=== PATIENT | female | born 1935 | race Caucasian/White ===

== ENCOUNTER 2016-10-14 12:51 | Emergency (ER) | payer MEDICARE, OTHER ==
--- NOTE | 2016-10-14 13:28 | EDM.PDOC ---
[facility] Behavioral Health - General Chief Complaint: Behavioral/Psych Stated Complaint: DEPRESSION Time Seen by Provider: 10/14/16 13:00 Source of Information: Reports: Patient Exam Limitations: Reports: No limitations - History of Present Illness INITIAL COMMENTS - FREE TEXT/NARRATIVE: History of present illness: [81-year-old female presenting with complaints of severe depression and history of ECT treatment. Patient was on vacation when she felt her depression coming upon her yet again and was unable to find someone to perform her ECT as is her usual routine when she has these feelings. Patient has an almost 20 year history of debilitating Major depressive disorder that has been refractory to any of the current psych medication and has only found relief with ECT. Patient and her have been in dialogue with psychiatric physician in [place] who indicated that he would perform her ECT as long as she was considered stable by the medical provider. Patient comes in today seeking basic Psych workup to take documentation to [place] per private vehicle for ECT treatment.] Review of systems: As per history of present illness and below otherwise all systems reviewed and negative. Past medical history: As per history of present illness and as reviewed below otherwise noncontributory. Surgical history: As per history of present illness and as reviewed below otherwise noncontributory. Social history: No reported history of drug or alcohol abuse. Family history: As per history of present illness and as reviewed below otherwise noncontributory. Physical exam: HEENT: Atraumatic, normocephalic, pupils reactive, negative for conjunctival pallor or scleral icterus, mucous membranes moist, throat clear, neck supple, nontender, trachea midline. Lungs: Clear to auscultation, breath sounds equal bilaterally, chest nontender. Heart: S1S2, regular, negative for clicks, rubs, or JVD. Abdomen: Soft, nondistended, nontender. Negative for masses or hepatosplenomegaly. Negative for costovertebral tenderness. Pelvis: Stable nontender. Genitourinary: Deferred. Rectal: Deferred. Extremities: Atraumatic, negative for cords or calf pain. Neurovascular unremarkable. Neuro: Awake, alert, oriented. Cranial nerves II through XII unremarkable. Cerebellum unremarkable. Motor and sensory unremarkable throughout. Exam nonfocal. Patient presents as diffuse, tangential with flattened affect. Diagnostics: [Psych workup] Therapeutics: [] Impression: [Major depressive disorder] Plan: [Medically clear for patient to transport him POV to [place] for ECT] Definitive disposition and diagnosis as appropriate pending reevaluation and review of above. - Related Data Allergies Allergy/AdvReac Type Severity Reaction Status Date / Time No Known Allergies Allergy Verified 10/14/16 13:55 Home Medications: Home Meds Aspirin 81 mg PO BRK 10/14/16 [History] Calcium Carbonate/Vitamin D3 [Calcium 500 + Vit D 200 Caplet] 1 each PO TID [History] Cholecalciferol (Vitamin D3) [D-2000] 2,000 unit PO DAILY 10/14/16 [History] Denosumab [Prolia] 60 mg SUBCUT Q180D 10/14/16 [History] Estrogens, Conjugated [Premarin Vaginal Crm] 1 gm VAG DAILY 10/14/16 [History] Multivitamin [Daily Purvi] 1 each PO DAILY 10/14/16 [History] Nitrofurantoin Monohyd/M-Cryst [Macrobid 100 mg Capsule] 100 mg PO BID #20 capsule 10/14/16 [Rx] Rosuvastatin [Crestor] 10 mg PO BEDTIME 10/14/16 [History] Ubiquinol 100 mg PO DAILY 10/14/16 [History] amLODIPine [Norvasc] 5 mg PO DAILY 10/14/16 [History] ED ROS GENERAL - Review of Systems Review Of Systems: See Below (The history of present illness) ED EXAM, BEHAVIORAL HEALTH - Physical Exam Exam: See Below (See history of present illness) COURSE, BEHAVIORAL HEALTH COMP - Course Vital Signs: Last Vital Signs Temp 36.9 C 10/14/16 13:56 Pulse 94 10/14/16 13:56 Resp 16 10/14/16 13:56 BP 117/69 10/14/16 13:56 Pulse Ox 95 10/14/16 13:56 Orders, Labs, Meds: Laboratory Tests 10/14/16 10/14/16 10/14/16 Range/Units 13:24 13:24 13:24 WBC 8.25 (4.0-11.0) K/uL RBC 5.00 (4.30-5.90) M/uL Hgb 14.4 (12.0-16.0) g/dL Hct 41.9 (36.0-46.0) % MCV 83.8 (80.0-98.0) fL MCH 28.8 (27.0-32.0) pg MCHC 34.4 (31.0-37.0) g/dL RDW Std Deviation 40.6 (28.0-62.0) fl RDW Coeff of [place] 14 (11.0-15.0) % Plt Count 188 (150-400) K/uL MPV 10.20 (7.40-12.00) fL Neut % (Auto) 68.0 (48.0-80.0) % Lymph % (Auto) 18.7 (16.0-40.0) % [place] % (Auto) 11.9 (0.0-15.0) % Eos % (Auto) 1.2 (0.0-7.0) % Baso % (Auto) 0.2 (0.0-1.5) % Neut # (Auto) 5.6 (1.4-5.7) K/uL Lymph # (Auto) 1.5 (0.6-2.4) K/uL [place] # (Auto) 1.0 H (0.0-0.8) K/uL Eos # (Auto) 0.1 (0.0-0.7) K/uL Baso # (Auto) 0.0 (0.0-0.1) K/uL Nucleated RBC % 0.0 /100WBC Nucleated RBCs # 0 K/uL Sodium 142 (136-146) mmol/L Potassium 3.6 (3.5-5.1) mmol/L Chloride 109 (98-110) mmol/L Carbon Dioxide 20 L (21-31) mmol/L BUN 14 (6.0-23.0) mg/dL Creatinine 1.2 (0.6-1.5) mg/dL Est Cr Clr Drug Dosing 33.65 mL/min Estimated GFR (MDRD) 43.2 ml/min Glucose 119 H (60-110) mg/dL Calcium 10.1 (8.8-10.8) mg/dL Magnesium 1.7 (1.5-2.3) mEq/L Total Bilirubin 0.5 (0.1-1.5) mg/dL AST 19 (5-40) IU/L ALT 24 (8-54) IU/L Alkaline Phosphatase 79 (40-150) Total Protein 7.8 (6.0-8.0) g/dL Albumin 4.3 (3.4-4.8) g/dL Globulin 3.5 (2.0-3.5) g/dL Albumin/Globulin Ratio 1.2 L (1.3-2.8) TSH 3rd Generation 1.10 (0.47-5.0) uIU/mL Urine Color Urine Appearance Urine pH (5.0-8.0) Ur Specific [place] (1.001-1.035) Urine Protein (NEGATIVE) mg/dL Urine Glucose (UA) (NEGATIVE) mg/dL Urine Ketones (NEGATIVE) mg/dL Urine Occult Blood (NEGATIVE) Urine Nitrite (NEGATIVE) Urine Bilirubin (NEGATIVE) Urine Urobilinogen (<2.0) EU/dL Ur Leukocyte Esterase (NEGATIVE) Urine RBC (0-2/HPF) Urine WBC (0-5/HPF) Ur Epithelial Cells (NONE-FEW) Ur Renal Epithelial Cell Urine Bacteria (NEGATIVE) Salicylates < 5.0 (0-20) mg/dL Urine Opiates Screen (NEGATIVE) Ur Oxycodone Screen (NEGATIVE) Urine Methadone Screen (NEGATIVE) Acetaminophen < 3.0 ug/mL Ur Barbiturates Screen (NEGATIVE) Ur Phencyclidine Scrn (NEGATIVE) Ur Amphetamine Screen (NEGATIVE) U Methamphetamines Scrn (NEGATIVE) U Benzodiazepines Scrn (NEGATIVE) U Cocaine Metab Screen (NEGATIVE) U Marijuana (THC) Screen (NEGATIVE) Ethyl Alcohol < 10.0 mg/dL 10/14/16 10/14/16 Range/Units 14:00 14:00 WBC (4.0-11.0) K/uL RBC (4.30-5.90) M/uL Hgb (12.0-16.0) g/dL Hct (36.0-46.0) % MCV (80.0-98.0) fL MCH (27.0-32.0) pg MCHC (31.0-37.0) g/dL RDW Std Deviation (28.0-62.0) fl RDW Coeff of [place]ha (11.0-15.0) % Plt Count (150-400) K/uL MPV (7.40-12.00) fL Neut % (Auto) (48.0-80.0) % Lymph % (Auto) (16.0-40.0) % [place] % (Auto) (0.0-15.0) % Eos % (Auto) (0.0-7.0) % Baso % (Auto) (0.0-1.5) % Neut # (Auto) (1.4-5.7) K/uL Lymph # (Auto) (0.6-2.4) K/uL [place] # (Auto) (0.0-0.8) K/uL Eos # (Auto) (0.0-0.7) K/uL Baso # (Auto) (0.0-0.1) K/uL Nucleated RBC % /100WBC Nucleated RBCs # K/uL Sodium (136-146) mmol/L Potassium (3.5-5.1) mmol/L Chloride (98-110) mmol/L Carbon Dioxide (21-31) mmol/L BUN (6.0-23.0) mg/dL Creatinine (0.6-1.5) mg/dL Est Cr Clr Drug Dosing mL/min Estimated GFR (MDRD) ml/min Glucose (60-110) mg/dL Calcium (8.8-10.8) mg/dL Magnesium (1.5-2.3) mEq/L Total Bilirubin (0.1-1.5) mg/dL AST (5-40) IU/L ALT (8-54) IU/L Alkaline Phosphatase (40-150) Total Protein (6.0-8.0) g/dL Albumin (3.4-4.8) g/dL Globulin (2.0-3.5) g/dL Albumin/Globulin Ratio (1.3-2.8) TSH 3rd Generation (0.47-5.0) uIU/mL Urine Color YELLOW Urine Appearance HAZY Urine pH 6.0 (5.0-8.0) Ur Specific [place] 1.010 (1.001-1.035) Urine Protein NEGATIVE (NEGATIVE) mg/dL Urine Glucose (UA) NEGATIVE (NEGATIVE) mg/dL Urine Ketones NEGATIVE (NEGATIVE) mg/dL Urine Occult Blood TRACE-INTACT (NEGATIVE) Urine Nitrite NEGATIVE (NEGATIVE) Urine Bilirubin NEGATIVE (NEGATIVE) Urine Urobilinogen 0.2 (<2.0) EU/dL Ur Leukocyte Esterase SMALL (NEGATIVE) Urine RBC 0-4 (0-2/HPF) Urine WBC 0-2 (0-5/HPF) Ur Epithelial Cells OCCASIONAL (NONE-FEW) Ur Renal Epithelial Cell RARE Urine Bacteria FEW (NEGATIVE) Salicylates (0-20) mg/dL Urine Opiates Screen NEGATIVE (NEGATIVE) Ur Oxycodone Screen NEGATIVE (NEGATIVE) Urine Methadone Screen NEGATIVE (NEGATIVE) Acetaminophen ug/mL Ur Barbiturates Screen NEGATIVE (NEGATIVE) Ur Phencyclidine Scrn NEGATIVE (NEGATIVE) Ur Amphetamine Screen NEGATIVE (NEGATIVE) U Methamphetamines Scrn NEGATIVE (NEGATIVE) U Benzodiazepines Scrn POSITIVE (NEGATIVE) U Cocaine Metab Screen NEGATIVE (NEGATIVE) U Marijuana (THC) Screen NEGATIVE (NEGATIVE) Ethyl Alcohol mg/dL Departure - Departure Time of Disposition: 15:06 Disposition: Home, Self-Care 01 Condition: good Clinical Impression: Depressive disorder Prescriptions: Nitrofurantoin Monohyd/M-Cryst [Macrobid 100 mg Capsule] 100 mg PO BID #20 capsule Referrals: Cedric Putnam MD [Primary Care Provider] - Forms: ED Department Discharge Additional Instructions: The following information is given to patients seen in the emergency department who are being discharged to home. This information is to outline your options for follow-up care. We provide all patients seen in our emergency department with a follow-up referral. The need for follow-up, as well as the timing and circumstances, are variable depending upon the specifics of your emergency department visit. If you don't have a primary care physician on staff, we will provide you with a referral. We always advise you to contact your personal physician following an emergency department visit to inform them of the circumstance of the visit and for follow-up with them and/or the need for any referrals to a consulting specialist. The emergency department will also refer you to a specialist when appropriate. This referral assures that you have the opportunity for follow-up care with a specialist. All of these measure are taken in an effort to provide you with optimal care, which includes your follow-up. Under all circumstances we always encourage you to contact your private physician who remains a resource for coordinating your care. When calling for follow-up care, please make the office aware that this follow-up is from your recent emergency room visit. If for any reason you are refused follow-up, please contact the [facility] Emergency Department at and asked to speak to the emergency department charge nurse. You've been provided with the basic psychiatric workup as well as a basic physical exam and determined to be medically stable to drive to [place] for treatment. Return to ED as needed as discussed
[2016-10-14 14:04] LABS: CHLORIDE,CL 109 mmol/L (98-110); SODIUM,NA 142 mmol/L (136-146)
[2016-10-14 14:11] LABS: ACETAMINOPHEN < 3.0 ug/mL
[2016-10-14 16:04] VITALS: BP 130/81
== END 2016-10-14 15:36 | disposition home or self-care (01) ==
LOC: MW.ED 12:51
DX: F32.9 Major depressive disorder, single episode, unspecified (principal); Z79.82 Long term (current) use of aspirin; Z79.899 Other long term (current) drug therapy
CPT/HCPCS: 36415; 80053; 80305; 81001; 83735; 84443; 85025; 99283; G0480

== ENCOUNTER → 2016-10-29 | Outpatient (CLI) | payer MEDICARE, OTHER ==
--- NOTE | 2016-12-03 17:49 | BHI ---
SERVICE DATE: 12/03/2016 PATIENT #: [id number] #: NOT DICTATED IDENTIFICATION: Evelyn is an 81-year-old female, who is here today for initial evaluation. She is referred to me by Dr. Putnam. CURRENT MEDICATIONS: Wellbutrin XL 150 mg a day, and she also takes Crestor off and on. ALLERGIES: She has no known allergies to medications. CHIEF COMPLAINT: She states she is here to evaluate her medications. HISTORY OF PRESENT ILLNESS: Evelyn has a very long history of very significant debilitating depression, it started in 1993 and she has had it periodically. Since then, she has good periods and then she slumps back down into deep depression. Since close to that time, she has had ECT treatments periodically. Last treatment she had was last month, and she has done well with them, but she does noticed a memory problem with it. She was supposed to go back for another one, but she was in [place] with her . She saw doctor down there. He put her on the Wellbutrin, and she feels like the Wellbutrin is working, so she would like to at this point in time just stay with the Wellbutrin and she has already canceled her appointment for her ECT treatments. She still has a few depression symptoms but nothing nearly as significant as what she has a lot of other times, decreased energy, fear of being embarrassed or humiliated. She does worry. She has worry wart and she is anxious. She sleeps very well. PHQ-9 score is 1, ROBERT-7 score is 2. In the past, she said her depression has been so debilitating that when she had her first episode back in the s, she said they did not think she would make it, is how she put it, but she has come through it and now she has experience and she knows when she starting to slide into a depression, so we usually when she sees the first signs then she needs to see a doctor and they need to plan what kind of treatment they are going to give her and for the last several years, it has usually been ECT. Her is here with her today and he is just basically here I guess for moral support, but he does provide some information. PAST PSYCHIATRIC HISTORY: She has been on another med in the past that she knows of but does not recall the name of it. She has had a hospitalization in the past. She has been diagnosed with major depression. No past suicidal ideation, and she denies any suicidal or homicidal ideation. She states that she would never do that. SOCIAL HISTORY: She was born in [facility], raised on a farm. She was for several years. Her some years ago. They had five sons together, four of who are still living. 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 She recently about 2 years ago and they do spend some time in [place]. One of her issues is that he likes to spend time down there, but she does not really like to leave her home and she enjoys just being home, and she does not like to join things or be part of big groups. FAMILY HISTORY: She said her dad had a lot of depression. CHEMICAL USAGE HISTORY: No issues with alcohol or drugs of any kind. MEDICAL HISTORY: She has a primary care provider is Dr. Putnam. She takes Crestor off and on. She also takes amlodipine for high blood pressure. REVIEW OF SYSTEMS: ALLERGY/IMMUNE: Denies any problems. CARDIOVASCULAR: She has high blood pressure. RESPIRATORY: Denies any problems. EARS, NOSE, and THROAT: Negative. EYES: Negative. GASTROINTESTINAL: Negative. GENITOURINARY: Negative. MUSCULOSKELETAL: Negative. NEUROLOGICAL: Denies problems, other than she does have some memory problems with the ECT. ENDOCRINE: Negative. INTEGUMENTARY: Negative. HEMATOLOGY: Negative. PHYSICAL EXAMINATION: VITAL SIGNS: Blood pressure is 120/77, heart rate 85, respirations 16, temperature is 98.3. Height is 65 inches, weight is 135.2 pounds. GENERAL APPEARANCE: Evelyn is very pleasant lady. She is well developed, well nourished, well groomed, appears her stated age. is here with her. There is good interaction between the 2 of them. Muscle strength and tone appears good. Her gait and station are normal. Speech is clear and appropriate and coherent. Thought processes are logical. I do not see any pressured speech or tangential speech. Associations are intact. I do not see any delusions. She denies suicidal or homicidal ideation. She denies hallucinations. She said her mood is fairly good and her affect is bright. Insight and judgment appears to be fairly good. Eye contact is good. MENTAL STATUS EXAM: She is alert and oriented x3. Recent and remote memory fair. Attention span seems to be fairly good. Language is good. Fund of knowledge appears adequate for developmental age. DIAGNOSES: [place] I: Major depression, recurrent, current episode, mild, F33.0; anxiety, F41.8. [place] II: No diagnosis. [place] III: Hypertension and hypercholesterolemia. [place] IV: Stressors: She does not identify any real stressors right now. In her life, things are good. Other than just having a difference of opinion on certain things with her she has now, and she is worried about not being able to come to a good conclusion. [place] V: Current Global Assessment of Functioning score 69. TREATMENT PLAN: She is going to continue the Wellbutrin XL 150 mg a day. I am going to follow up with her in about a month because that will give us a better idea of how the Wellbutrin is going to work for her. If she is still having a fair amount of anxiety, I stated we could look at adding maybe something to the Wellbutrin, but we will see how she does over the next month here and see if maybe the anxiety gets a little better. She did state over the last 2 days she thought it was maybe slightly better. If she has any problems before that, she will call. /[id number]
== END | disposition home or self-care (01) ==
LOC: MW.CHIM 15:31
PROVIDERS: ATTEND Internal Medicine
DX: E78.00 Pure hypercholesterolemia, unspecified (principal); I10 Essential (primary) hypertension; F32.9 Major depressive disorder, single episode, unspecified; M19.049 Primary osteoarthritis, unspecified hand; M81.0 Age-related osteoporosis without current pathological fracture
CPT/HCPCS: 36415; 80053; 80061; 84439; 84443; 99214

== ENCOUNTER → 2016-11-13 | Outpatient (CLI) | payer MEDICARE, OTHER | LOC: MW.CHIM 08:00 | PROVIDERS: ATTEND Internal Medicine | DX: M81.0 Age-related osteoporosis without current pathological fracture (principal) | CPT/HCPCS: 96372; J0897 ==

== ENCOUNTER → 2016-12-03 | Outpatient (CLI) | payer MEDICARE, OTHER | PROVIDERS: ATTEND Nurse Practitioner Family | DX: F33.0 Major depressive disorder, recurrent, mild (principal); F41.8 Other specified anxiety disorders | CPT/HCPCS: 90792 ==

== ENCOUNTER 2023-07-28 14:23 | Emergency (ER) | payer MEDICARE ==
[2023-07-28] MEDS ORDERED: Cyclobenzaprine 10 MG Tab PO ONE (16:15)
[2023-07-28] MEDS ORDERED: Lidocaine 4% 1 each Patch TOP STA (16:15)
[2023-07-28 17:43] VITALS: BP 150/84; PULSE 74
== END 2023-07-28 17:44 | disposition home or self-care (01) ==
LOC: MW.ED 14:23
DX: S22.32XA Fracture of one rib, left side, initial encounter for closed fracture (principal); E78.00 Pure hypercholesterolemia, unspecified; I10 Essential (primary) hypertension
CPT/HCPCS: 71101; 99283; A9270

== ENCOUNTER 2023-07-30 09:35 | Inpatient (IN) | payer MEDICARE ==
[2023-07-30] MEDS ORDERED: Sodium Chloride 0.9% 10 ML Syringe FLUSH PRN ×2 (10:04→14:17)
[2023-07-30] MEDS ORDERED: Sodium Chloride 0.9% 2.5 ML Syringe FLUSH PRN ×2 (10:04→14:17)
[2023-07-30 10:28] LABS: BILIRUBIN,URINE NEGATIVE (NEGATIVE); COLOR,URINE YELLOW; GLUCOSE,URINE NEGATIVE (NEGATIVE); KETONES,URINE NEGATIVE (NEGATIVE); LEUKOCYTE ESTERASE,URINE SMALL (NEGATIVE); NITRITE,URINE NEGATIVE (NEGATIVE); OCCULT BLOOD,URINE NEGATIVE (NEGATIVE); PH,URINE 6.5 (5.0-8.0); PROTEIN,URINE NEGATIVE (NEGATIVE); UROBILINOGEN,URINE 0.2 EU/dL (<2.0)
[2023-07-30 10:51] LABS: BASOPHILS ABSOLUTE AUTO 0.02 K/uL (0.00-0.20); BASOPHILS PERCENT AUTO 0.3 % (0.0-1.0); EOSINOPHILS ABSOLUTE AUTO 0.08 K/uL (0.00-0.45); EOSINOPHILS PERCENT AUTO 1.2 % (0.0-6.0); HEMATOCRIT 40.5 % (37.0-47.0); HEMOGLOBIN 13.7 g/dL (12.0-16.0); IMMATURE GRAN ABSOLUTE AUTO 0.01 K/uL (0.00-0.05); IMMATURE GRAN PERCENT AUTO 0.2 % (0.0-0.4); LYMPHOCYTES ABSOLUTE AUTO 1.08 K/uL (1.00-4.80); LYMPHOCYTES PERCENT AUTO 16.3 % (24.0-44.0); MEAN CORPUSCULAR HEMOGLOBIN 29.2 pg (28.0-32.0); MEAN CORPUSCULAR HGB CONC 33.8 g/dL (32.0-36.0); MEAN CORPUSCULAR VOLUME 86.4 fL (83.0-99.0); MEAN PLATELET VOLUME 9.8 fL (9.4-12.3); MONOCYTES ABSOLUTE AUTO 0.83 K/uL (0.00-0.80); MONOCYTES PERCENT AUTO 12.6 % (0.0-8.0); NEUTROPHILS ABSOLUTE AUTO 4.59 K/uL (1.80-7.70); NEUTROPHILS PERCENT AUTO 69.4 % (41.0-71.0); PLATELET COUNT,PLT 158 K/uL (150-400); RED BLOOD CELL COUNT 4.69 M/uL (4.10-5.30); WHITE BLOOD CELL COUNT,WBC 6.61 K/uL (3.9-11.3)
[2023-07-30 10:58] LABS: APPEARANCE,URINE HAZY; BACTERIA,URINE FEW (NEGATIVE); EPITHELIAL CELLS,URINE OCCASIONAL (NONE-FEW); RBC,URINE 0-1 (0-2/HPF)
[2023-07-30 11:33] LABS: ALBUMIN 3.5 g/dL (3.4-5.0); BILIRUBIN TOTAL 0.5 mg/dL (0.2-1.0); CALCIUM 9.9 mg/dL (8.5-10.1); CARBON DIOXIDE,CO2 28.7 mmol/L (21.0-32.0); CREATININE 1.1 mg/dL (0.6-1.0); EST CRCL DRUG DOSING (CG) 33.73 mL/min; POTASSIUM,K 3.6 mmol/L (3.5-5.1); PROTEIN TOTAL,TP 6.9 g/dL (6.4-8.2)
[2023-07-30] MEDS ORDERED: Lidocaine 4% 1 each Patch TOP PRN (12:52)
[2023-07-30] MEDS ORDERED: Docusate Sodium 100 MG Cap PO PRN (14:17)
[2023-07-30] MEDS ORDERED: Ondansetron 4 MG/2 ML SDV IVPUSH PRN (14:17)
[2023-07-30] MEDS ORDERED: Polyethylene Glycol 3350 Powder 17 GM Packet PO PRN (14:17)
[2023-07-30] MEDS ORDERED: Acetaminophen 325 MG Tab PO PRN (14:17)
[2023-07-30] MEDS ORDERED: Ondansetron 4 MG Tab.DIS PO PRN (14:17)
[2023-07-30] MEDS ORDERED: Heparin Sodium 5,000 Units/ML Vial SUBCUT SCH (14:30)
[2023-07-30] MEDS: cefTRIAXone 1 GM in Sodium Chloride 0.9% 50 ML IV SCH (15:35)
[2023-07-30] MEDS: Donepezil 5 MG Tab PO SCH (20:04)
[2023-07-30] MEDS: Rosuvastatin 10 MG Tab PO SCH ×2 (20:04→20:17)
[2023-07-30] MEDS: ALPRAZolam 0.5 MG Tab PO SCH (20:04)
[2023-07-30] MEDS: Famotidine 20 MG Tab PO SCH ×2 (20:04→21:52)
[2023-07-30] MEDS ORDERED: Haloperidol Lactate 5 MG/ML SDV IM PRN (21:55)
[2023-07-31] MEDS ORDERED: buPROPion 150 MG Tab.ER PO SCH (09:00)
[2023-07-31] MEDS: Losartan 50 MG Tab PO SCH (09:15)
[2023-07-31] MEDS: Heparin Sodium 5,000 Units/ML Vial SUBCUT SCH ×3 (10:01→20:03)
[2023-07-31] MEDS: Lidocaine 4% 1 each Patch TOP SCH (10:01)
[2023-07-31 11:45] LABS: BASOPHILS ABSOLUTE AUTO 0.01 K/uL (0.00-0.20); BASOPHILS PERCENT AUTO 0.2 % (0.0-1.0); EOSINOPHILS ABSOLUTE AUTO 0.09 K/uL (0.00-0.45); EOSINOPHILS PERCENT AUTO 1.5 % (0.0-6.0); HEMATOCRIT 40.3 % (37.0-47.0); HEMOGLOBIN 13.4 g/dL (12.0-16.0); IMMATURE GRAN ABSOLUTE AUTO 0.03 K/uL (0.00-0.05); IMMATURE GRAN PERCENT AUTO 0.5 % (0.0-0.4); LYMPHOCYTES ABSOLUTE AUTO 1.11 K/uL (1.00-4.80); LYMPHOCYTES PERCENT AUTO 18.5 % (24.0-44.0); MEAN CORPUSCULAR HEMOGLOBIN 28.7 pg (28.0-32.0); MEAN CORPUSCULAR HGB CONC 33.3 g/dL (32.0-36.0); MEAN CORPUSCULAR VOLUME 86.3 fL (83.0-99.0); MEAN PLATELET VOLUME 10.2 fL (9.4-12.3); MONOCYTES ABSOLUTE AUTO 0.71 K/uL (0.00-0.80); MONOCYTES PERCENT AUTO 11.8 % (0.0-8.0); NEUTROPHILS ABSOLUTE AUTO 4.05 K/uL (1.80-7.70); NEUTROPHILS PERCENT AUTO 67.5 % (41.0-71.0); PLATELET COUNT,PLT 184 K/uL (150-400); RED BLOOD CELL COUNT 4.67 M/uL (4.10-5.30)
[2023-07-31 12:01] LABS: CALCIUM 9.2 mg/dL (8.5-10.1); CARBON DIOXIDE,CO2 32.3 mmol/L (21.0-32.0); EST CRCL DRUG DOSING (CG) 31.96 mL/min; POTASSIUM,K 3.5 mmol/L (3.5-5.1)
[2023-07-31 12:33] LABS: TSH ULTRASENSITIVE 0.81 uIU/mL (0.36-3.74)
[2023-07-31] MEDS: cefTRIAXone 1 GM in Sodium Chloride 0.9% 50 ML IV SCH (14:15)
[2023-07-31] MEDS: ALPRAZolam 0.5 MG Tab PO SCH ×2 (19:39→20:04)
[2023-07-31] MEDS: Donepezil 5 MG Tab PO SCH ×2 (19:39→20:02)
[2023-07-31] MEDS: Rosuvastatin 10 MG Tab PO SCH ×2 (19:40→20:02)
[2023-07-31] MEDS: Famotidine 20 MG Tab PO SCH ×2 (19:40→20:03)
[2023-07-31] MEDS: Cyanocobalamin (Vitamin B12) 500 MCG Tab PO SCH (20:45)
[2023-07-31] MEDS: Vitamin B6-pyridOXINE 50 MG Tab PO SCH (20:45)
[2023-08-01] MEDS: Folic Acid 1 MG Tab PO SCH (08:49)
[2023-08-01] MEDS: Losartan 50 MG Tab PO SCH (08:49)
[2023-08-01] MEDS: Cyanocobalamin (Vitamin B12) 500 MCG Tab PO SCH (08:50)
[2023-08-01] MEDS: Cholecalciferol (Vitamin D3) 25 MCG Tab PO SCH (08:50)
[2023-08-01] MEDS: Vitamin B6-pyridOXINE 50 MG Tab PO SCH (08:51)
[2023-08-01 08:52] LABS: BASOPHILS ABSOLUTE AUTO 0.03 K/uL (0.00-0.20); BASOPHILS PERCENT AUTO 0.4 % (0.0-1.0); EOSINOPHILS ABSOLUTE AUTO 0.11 K/uL (0.00-0.45); EOSINOPHILS PERCENT AUTO 1.6 % (0.0-6.0); HEMATOCRIT 43.3 % (37.0-47.0); HEMOGLOBIN 14.5 g/dL (12.0-16.0); IMMATURE GRAN ABSOLUTE AUTO 0.01 K/uL (0.00-0.05); IMMATURE GRAN PERCENT AUTO 0.1 % (0.0-0.4); LYMPHOCYTES ABSOLUTE AUTO 1.54 K/uL (1.00-4.80); LYMPHOCYTES PERCENT AUTO 22.5 % (24.0-44.0); MEAN CORPUSCULAR HEMOGLOBIN 28.7 pg (28.0-32.0); MEAN CORPUSCULAR HGB CONC 33.5 g/dL (32.0-36.0); MEAN CORPUSCULAR VOLUME 85.7 fL (83.0-99.0); MEAN PLATELET VOLUME 9.9 fL (9.4-12.3); MONOCYTES ABSOLUTE AUTO 0.76 K/uL (0.00-0.80); MONOCYTES PERCENT AUTO 11.1 % (0.0-8.0); NEUTROPHILS ABSOLUTE AUTO 4.38 K/uL (1.80-7.70); NEUTROPHILS PERCENT AUTO 64.3 % (41.0-71.0); PLATELET COUNT,PLT 195 K/uL (150-400); RED BLOOD CELL COUNT 5.05 M/uL (4.10-5.30); WHITE BLOOD CELL COUNT,WBC 6.83 K/uL (3.9-11.3)
[2023-08-01] MEDS: Heparin Sodium 5,000 Units/ML Vial SUBCUT SCH ×2 (08:52→20:08)
[2023-08-01] MEDS: Lidocaine 4% 1 each Patch TOP SCH (08:55)
[2023-08-01] MEDS ORDERED: buPROPion 150 MG Tab.ER PO SCH (09:00)
[2023-08-01 09:11] LABS: CALCIUM 9.4 mg/dL (8.5-10.1); EST CRCL DRUG DOSING (CG) 31.86 mL/min; POTASSIUM,K 3.5 mmol/L (3.5-5.1)
[2023-08-01] MEDS ORDERED: buPROPion 150 MG Tab.SR PO SCH (10:54)
[2023-08-01] MEDS: buPROPion 150 MG Tab.SR PO SCH (10:56)
[2023-08-01] MEDS: cefTRIAXone 1 GM in Sodium Chloride 0.9% 50 ML IV SCH (14:31)
[2023-08-01] MEDS: Rosuvastatin 10 MG Tab PO SCH (20:05)
[2023-08-01] MEDS: Donepezil 5 MG Tab PO SCH (20:05)
[2023-08-01] MEDS: Famotidine 20 MG Tab PO SCH (20:05)
[2023-08-01] MEDS: ALPRAZolam 0.5 MG Tab PO SCH (20:06)
[2023-08-02] MEDS: Folic Acid 1 MG Tab PO SCH (09:29)
[2023-08-02] MEDS: Heparin Sodium 5,000 Units/ML Vial SUBCUT SCH ×2 (09:30→20:03)
[2023-08-02] MEDS: Cyanocobalamin (Vitamin B12) 500 MCG Tab PO SCH (09:30)
[2023-08-02] MEDS: buPROPion 150 MG Tab.SR PO SCH (09:30)
[2023-08-02] MEDS: Vitamin B6-pyridOXINE 50 MG Tab PO SCH (09:30)
[2023-08-02] MEDS: Losartan 50 MG Tab PO SCH (09:35)
[2023-08-02] MEDS: Lidocaine 4% 1 each Patch TOP SCH (09:37)
[2023-08-02] MEDS: Cholecalciferol (Vitamin D3) 25 MCG Tab PO SCH (09:55)
[2023-08-02] MEDS: Donepezil 5 MG Tab PO SCH (20:03)
[2023-08-02] MEDS: Famotidine 20 MG Tab PO SCH (20:03)
[2023-08-02] MEDS: ALPRAZolam 0.5 MG Tab PO SCH (20:03)
[2023-08-02] MEDS: Rosuvastatin 10 MG Tab PO SCH (20:03)
[2023-08-02] MEDS: Cefdinir 300 MG Cap PO SCH (20:12)
[2023-08-03] MEDS: buPROPion 150 MG Tab.SR PO SCH (08:10)
[2023-08-03] MEDS: Cholecalciferol (Vitamin D3) 25 MCG Tab PO SCH (08:11)
[2023-08-03] MEDS: Folic Acid 1 MG Tab PO SCH (08:12)
[2023-08-03] MEDS: Cefdinir 300 MG Cap PO SCH (08:13)
[2023-08-03] MEDS: Losartan 50 MG Tab PO SCH (08:14)
[2023-08-03] MEDS: Vitamin B6-pyridOXINE 50 MG Tab PO SCH (08:15)
[2023-08-03] MEDS: Cyanocobalamin (Vitamin B12) 500 MCG Tab PO SCH (08:16)
[2023-08-03] MEDS: Heparin Sodium 5,000 Units/ML Vial SUBCUT SCH ×2 (08:17→20:09)
[2023-08-03] MEDS: Lidocaine 4% 1 each Patch TOP SCH (08:21)
[2023-08-03] MEDS: Donepezil 5 MG Tab PO SCH (20:09)
[2023-08-03] MEDS: Famotidine 20 MG Tab PO SCH (20:09)
[2023-08-03] MEDS: Rosuvastatin 10 MG Tab PO SCH (20:09)
[2023-08-03] MEDS: ALPRAZolam 0.5 MG Tab PO SCH (20:10)
[2023-08-04] MEDS: Lidocaine 4% 1 each Patch TOP SCH (08:33)
[2023-08-04] MEDS: Cyanocobalamin (Vitamin B12) 500 MCG Tab PO SCH (08:34)
[2023-08-04] MEDS: Cholecalciferol (Vitamin D3) 25 MCG Tab PO SCH (08:34)
[2023-08-04] MEDS: Folic Acid 1 MG Tab PO SCH (08:34)
[2023-08-04] MEDS: Vitamin B6-pyridOXINE 50 MG Tab PO SCH (08:34)
[2023-08-04] MEDS: Losartan 50 MG Tab PO SCH (08:34)
[2023-08-04] MEDS: buPROPion 150 MG Tab.SR PO SCH (08:34)
[2023-08-04] MEDS: Heparin Sodium 5,000 Units/ML Vial SUBCUT SCH (08:35)
[2023-08-04 11:58] VITALS: BP 145/84; PULSE 78
== END 2023-08-04 11:07 | disposition home health service (06) | DRG 690 ==
LOC: MW.ED 09:35 → MW.MS 13:54
PROVIDERS: ADMIT Family Medicine; ATTEND Family Medicine
DX: N30.00 Acute cystitis without hematuria (principal); S22.42XA Multiple fractures of ribs, left side, initial encounter for closed fracture; F03.90 Unspecified dementia, unspecified severity, without behavioral disturbance, psychotic disturbance, mood disturbance, and anxiety; F02.B3 Dementia in other diseases classified elsewhere, moderate, with mood disturbance; F02.B4 Dementia in other diseases classified elsewhere, moderate, with anxiety; I10 Essential (primary) hypertension; G93.40 Encephalopathy, unspecified; F32.1 Major depressive disorder, single episode, moderate; Z66 Do not resuscitate; R29.6 Repeated falls; E78.00 Pure hypercholesterolemia, unspecified; Z79.899 Other long term (current) drug therapy; K21.9 Gastro-esophageal reflux disease without esophagitis; G30.9 Alzheimer's disease, unspecified; K11.8 Other diseases of salivary glands; L82.1 Other seborrheic keratosis; W07.XXXA Fall from chair, initial encounter; Z98.890 Other specified postprocedural states; W19.XXXA Unspecified fall, initial encounter
CPT/HCPCS: 36415; 70450; 71101; 80053; 81001; 85025; 87086; 93005; 99285; J3490; 80048; 82607; 84443; 93010; 97110-GP; 97162-GP; 99222; 99232; 99239; A9270-GY; J0696; J1644